=== PATIENT | male | born 1930 | race Caucasian/White ===

== ENCOUNTER → 2016-11-10 | Outpatient (CLI) | payer BC ==
[~2016-11-10] MED LIST: ASPI81TA85 PO; CALCTAB5 PO; CRAN1CAP15 PO; LISI-461 PO; METO-217 PO; OMEG10007 PO; SIMV10TA2 PO; Vitamin E PO; vitamin D PO
[2016-11-10 15:36] LABS: BASO % 0.7 %; BASO ABS # 0.05 K/uL (0-0.2); COMPLETE YES; EOS % 4.2 %; HEMATOCRIT 40.7 % (42-52); IG% 0.3 %; LYMPH % 21.8 %; LYMPH ABS # 1.66 K/uL (1.2-3.4); MEAN CELL VOLUME 98.1 fL (80-100); MEAN CORPUSCULAR HGB CONC 33.7 g/dl (32-36); MEAN PLATELET VOLUME 10.1 fL (7.4-10.4); MONO % 10.2 %; NEUT % 62.8 %; PLATELET COUNT 235 K/uL (130-400); RED BLOOD COUNT 4.15 M/uL (4.7-6.1); WHITE BLOOD COUNT 7.61 K/uL (4.8-10.8)
[2016-11-10 16:07] LABS: ALT/SGPT 24 U/L (12-78); AST/SGOT 10 U/L (15-37); BLOOD UREA NITROGEN 14 mg/dl (7-18); BUN/CREATININE RATIO 12.4 (10-20); CALCIUM 9.1 mg/dl (8.5-10.1); CARBON DIOXIDE 27 mmol/L (21-32); CHLORIDE 106 mmol/L (98-107); GLUCOSE 116 mg/dl (70-99); POTASSIUM 3.8 mmol/L (3.5-5.1); SODIUM 141 mmol/L (136-145)
[2016-11-10 16:19] LABS: ALB/GLOB RATIO 1.3 (0.9-2); ALKALINE PHOSPHATASE 83 U/L (45-117); CHOLESTEROL 143 mg/dl (0-200); CHOLESTEROL/HDL RATIO 2.8; HDL CHOLESTEROL 51 mg/dl; LDL CHOLESTEROL CALCULATED 50 mg/dl; TRIGLYCERIDES 210 mg/dl (0-150); VERY LOW DENSITY LIPOPROT CALC 42 mg/dl
== END | disposition home or self-care (01) ==
LOC: C.LAB1850 14:28
PROVIDERS: ATTEND Internal Medicine Pulmonary Disease
DX: I25.10 Atherosclerotic heart disease of native coronary artery without angina pectoris (principal); E78.5 Hyperlipidemia, unspecified; I10 Essential (primary) hypertension; N31.9 Neuromuscular dysfunction of bladder, unspecified

== ENCOUNTER 2017-08-17 03:33 | Inpatient (IN) | payer OTHER, BC ==
[~2017-08-17] VITALS: Ht 172.7 cm; Wt 73.2 kg
[2017-08-17] VITALS (8 sets, daily range): BP systolic 108–147; BP diastolic 68–83; PULSE 91–114; TEMP 36.8–36.9; O2SAT 93–97; Ht 172.7 cm; Wt 73.2 kg
[2017-08-17] MEDS ORDERED: SODIUM CHLORIDE 0.9% 500ML 500 ML IV STA (03:56)
--- NOTE | 2017-08-17 04:04 | EMERGENCY ROOM VISIT NOTE ---
History Report prepared by Breonna: Ye Ramirez Under the Supervision of: Dr. Akin Knox M.D. 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 The patient also notes a cough and congestion. Per EMS, the patient had a fever of 101.9 at group home. The patient had low oxygen saturation upon arrival and was placed on 1 L NC by nursing staff. He notes that he was given Tylenol yesterday. He denies any history of COPD. He denies using at home oxygen. He denies any abdominal pain, syncope, vomiting, or leg swelling. He denies taking any antibiotics. The patient currently resides at [facility]. 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 He denies any syncope or leg swelling. Review of Systems See HPI for pertinent positives & negatives. A total of 10 systems reviewed and were otherwise negative. Past Medical & Surgical Medical Problems: (1) Acute respiratory failure with hypoxia (2) HCAP (healthcare-associated pneumonia) (3) TN (myocardial infarction) (4) Self-catheterizes urinary bladder (5) Spinal injury (6) UTI (urinary tract infection) Family History Diabetes mellitus Social History Smoking Status: Former Smoker Alcohol Use: none Drug Use: none Marital Status: single Housing Status: lives alone Occupation Status: retired Current/Historical Medications Scheduled Aspirin (Aspirin Dr), 81 MG PO HS Calcium Carbonate-Vitamin D W/ (Caltrate 600 Plus), 1 TAB PO DAILY Lisinopril (Zestril), 10 MG PO DAILY Metoprolol Succinate (Toprol Xl), 50 MG PO HS Simvastatin (Zocor), 10 MG PO DAILY Scheduled PRN Docusate Sodium (Docusate Sodium), 100 MG PO DAILY PRN for Constipation Guaifenesin Ext Rel (Mucinex Ext Rel), 600 MG PO Q12 PRN for CONGESTION Allergies Coded Allergies: No Known Allergies (Unverified , 02/19/14) Physical Exam Vital Signs Date Time Temp Pulse Resp B/P (MAP) Pulse Ox O2 Delivery O2 Flow Rate FiO2 08/17/17 05:40 96 20 121/70 93 Nasal Cannula 2.0 08/17/17 03:41 93 Nasal Cannula 2.0 08/17/17 03:37 36.9 95 26 121/70 91 Room Air Physical Exam GENERAL: Patient is elderly appearing and in no acute distress. HEENT: No acute trauma, normocephalic atraumatic, mucous membranes dry, nasal congestion, no scleral icterus. NECK: No stridor, no adenopathy, no meningismus, trachea is midline. LUNGS: Decreased breath sounds and crackles throughout right lower lobe. HEART: Mildly tachycardic. No murmurs, rubs, gallops appreciated. ABDOMEN: Soft, nontender, bowel sounds positive, no masses appreciated, no peritonitis. BACK: No midline tenderness, no CVA tenderness EXTREMITIES: Normal motion all extremities, no cyanosis, no edema. NEUROLOGIC: Alert and oriented, no acute motor or sensory deficits, no focal weakness, cranial nerves grossly intact. SKIN: No rash, no jaundice, no diaphoresis. Poor skin turgor. Medical Decision & Procedures ER Provider Diagnostic Interpretation: Radiology results and stated below per my review interpretation: ONE VIEW CHEST: Infiltrate throughout right lung field with mild congestive findings as well. Poor inspiratory effort. Laboratory Results 08/17/17 04:10 Red Blood Count 3.75, Mean Corpuscular Volume 99.5, Mean Corpuscular Hemoglobin 32.5, Mean Corpuscular Hemoglobin Concent 32.7, Mean Platelet Volume 9.8, Neutrophils (%) (Auto) 81.5, Lymphocytes (%) (Auto) 5.8, Monocytes (%) (Auto) 9.9, Eosinophils (%) (Auto) 1.8, Basophils (%) (Auto) 0.6, Neutrophils # (Auto) 5.78, Lymphocytes # (Auto) 0.41, Monocytes # (Auto) 0.70, Eosinophils # (Auto) 0.13, Basophils # (Auto) 0.04 08/17/17 04:10 Test 08/17/17 04:00 08/17/17 04:10 Influenza Type A Antigen Neg for Influ A (NEG) Influenza Type B Antigen Neg for Influ B (NEG) White Blood Count 7.09 K/uL (4.8-10.8) Red Blood Count 3.75 M/uL (4.7-6.1) Hemoglobin 12.2 g/dL (14.0-18.0) Hematocrit 37.3 % (42-52) Mean Corpuscular Volume 99.5 fL (80-100) Mean Corpuscular Hemoglobin 32.5 pg (25-34) Mean Corpuscular Hemoglobin Concent 32.7 g/dl (32-36) Platelet Count 206 K/uL (130-400) Mean Platelet Volume 9.8 fL (7.4-10.4) Neutrophils (%) (Auto) 81.5 % Lymphocytes (%) (Auto) 5.8 % Monocytes (%) (Auto) 9.9 % Eosinophils (%) (Auto) 1.8 % Basophils (%) (Auto) 0.6 % Neutrophils # (Auto) 5.78 K/uL (1.4-6.5) Lymphocytes # (Auto) 0.41 K/uL (1.2-3.4) Monocytes # (Auto) 0.70 K/uL (0.11-0.59) Eosinophils # (Auto) 0.13 K/uL (0-0.5) Basophils # (Auto) 0.04 K/uL (0-0.2) RDW Standard Deviation 48.9 fL (36.4-46.3) RDW Coefficient of Variation 13.6 % (11.5-14.5) Immature Granulocyte % (Auto) 0.4 % Immature Granulocyte # (Auto) 0.03 K/uL (0.00-0.02) Anion Gap 6.0 mmol/L (3-11) Est Creatinine Clear Calc Drug Dose 47.5 ml/min Estimated GFR () 74.0 Estimated GFR (Non- 63.8 BUN/Creatinine Ratio 14.7 (10-20) Calcium Level 8.2 mg/dl (8.5-10.1) Total Bilirubin 0.5 mg/dl (0.2-1) Direct Bilirubin 0.2 mg/dl (0-0.2) Aspartate Amino Transf (AST/SGOT) 14 U/L (15-37) Alanine Aminotransferase (ALT/SGPT) 22 U/L (12-78) Alkaline Phosphatase 62 U/L (45-117) Troponin I < 0.015 ng/ml (0-0.045) Total Protein 6.5 gm/dl (6.4-8.2) Albumin 3.5 gm/dl (3.4-5.0) Laboratory results as reviewed by me. Medications Administered Medications (Trade) Dose Ordered Sig/Radha Route Start Time Stop Time Status Last Admin Dose Admin Sodium Chloride 500 ml @ 999 mls/hr Q31M STAT IV 08/17/17 03:56 08/17/17 04:26 DC 08/17/17 03:56 999 MLS/HR Levofloxacin (Levaquin / D5W) 750 mg NOW STAT IV 08/17/17 04:46 08/17/17 04:47 DC 08/17/17 05:01 750 MG ECG Indication: other (fever) Rate (beats per minute): 80 Rhythm: sinus rhythm Findings: no acute ischemic change, no ectopy, other (Poor baseline) ED Course 0350: The patient was evaluated in room B9. A complete history and physical exam was performed. 0505: I spoke with abelardo Triana. We discussed the patients case. The patient will be evaluated by the [facility] for further management. 0510: I reassessed the patient at this time. He is feeling much better. He notes that he is breathing well on the oxygen, which he still requires. I discussed the results and treatment plan with the patient. I answered all pertaining questions that he had. He expressed understanding and verbalized agreement. The patient will be further evaluated. Medical Decision Differential: Viral, Pharyngitis, Cellulitis, Pneumonia, Influenza, Meningitis, Sepsis, Bacteremia, UTI/Pyelonephritis, Endocrine, Toxicologic, amongst other pathologies entertained. 86 yr old male arrives with complaint of cough, fevers, and generalized weakness. Exam consistent with significant dehydration and right lobe pna. Requiring NC O2 for saturation. CXR with congestive failure vs infiltrate, but given exam consistent with dehydration may not be over CHF. Flu negative. He is A&O. No evidence cellulitis seen. He is not overtly septic though I did obtain blood cultures with report temp 101.9 at [facility]. Medication Reconcilliation Current Medication List: was personally reviewed by me Blood Pressure Screening Patient's blood pressure: Normal blood pressure Consults Time Called: [phone] Consulting Physician: abelardo Triana Returned Call: [phone] Pasquariello, hospitalist. We discussed the patients case. The patient will be evaluated by the [facility] for further management. Impression Primary Impression: PNA (pneumonia) Additional Impression: Hypoxia Scribe Attestation The scribe's documentation has been prepared under my direction and personally reviewed by me in its entirety. I confirm that the note above accurately reflects all work, treatment, procedures, and medical decision making performed by me. Departure Information Dispostion Being Evaluated By Hospitalist Referrals To Sharma M.D. (PCP) Patient Instructions My [facility] Problem Qualifiers
[2017-08-17 04:41] LABS: BASO % 0.6 %; BASO ABS # 0.04 K/uL (0-0.2); EOS % 1.8 %; EOS ABS # 0.13 K/uL (0-0.5); HEMATOCRIT 37.3 % (42-52); HEMOGLOBIN 12.2 g/dL (14.0-18.0); IG# 0.03 K/uL (0.00-0.02); LYMPH % 5.8 %; LYMPH ABS # 0.41 K/uL (1.2-3.4); MEAN CELL VOLUME 99.5 fL (80-100); MEAN CORPUSCULAR HEMOGLOBIN 32.5 pg (25-34); MEAN CORPUSCULAR HGB CONC 32.7 g/dl (32-36); MEAN PLATELET VOLUME 9.8 fL (7.4-10.4); MONO % 9.9 %; NEUT % 81.5 %; NEUT ABS # 5.78 K/uL (1.4-6.5); PLATELET COUNT 206 K/uL (130-400); RED CELL DISTRIBUTION WIDTH CV 13.6 % (11.5-14.5); RED CELL DISTRIBUTION WIDTH SD 48.9 fL (36.4-46.3); WHITE BLOOD COUNT 7.09 K/uL (4.8-10.8)
[2017-08-17] MEDS ORDERED: LEVAQUIN 750MG / 150ML D5W IV STA (04:46)
[2017-08-17 04:52] LABS: INFLUENZA B ANTIGEN Neg for Influ B (NEG)
[2017-08-17 04:59] LABS: ALBUMIN 3.5 gm/dl (3.4-5.0); ALT/SGPT 22 U/L (12-78); AST/SGOT 14 U/L (15-37); BLOOD UREA NITROGEN 15 mg/dl (7-18); CALCIUM 8.2 mg/dl (8.5-10.1); CARBON DIOXIDE 25 mmol/L (21-32); CREATININE 1.04 mg/dl (0.60-1.40); GLUCOSE 126 mg/dl (70-99); POTASSIUM 3.7 mmol/L (3.5-5.1); SODIUM 135 mmol/L (136-145)
[2017-08-17 05:04] LABS: ALKALINE PHOSPHATASE 62 U/L (45-117); TOTAL PROTEIN 6.5 gm/dl (6.4-8.2)
[2017-08-17] MEDS ORDERED: CALCTAB7 PO (05:20)
[2017-08-17] MEDS ORDERED: DOCU100C31 PO (05:22)
[2017-08-17] MEDS ORDERED: GUAI1TAB55 PO (05:23)
[2017-08-17] MEDS ORDERED: ONDANSETRON INJ 2 MG/ML 2 ML VIAL IV PRN (05:45)
[2017-08-17] MEDS ORDERED: ACETAMINOPHEN 325 MG TAB PO PRN (05:45)
[2017-08-17] MEDS ORDERED: GUAIFENESIN 600 MG TABCR PO PRN (05:45)
[2017-08-17] MEDS ORDERED: MAGNESIUM HYDROXIDE SUSP 30 ML UDC PO PRN (05:45)
--- NOTE | 2017-08-17 06:17 | History and Physical ---
History & Physical Date & Time of Service: Aug 17, 2017 at 06:03 Chief Complaint: COUGH Primary Care Physician: To Sharma M.D. History of Present Illness Source: patient, hospital records Patient is an 86 year old male from [facility] with a history of hypertension and hyperlipidemia that presents with shortness of breath and fevers. The patient began having shortness of breath over the weekend and developed and intermittent non-productive cough. The patient also started to develop low-grade fevers yesterday, and recorded at 101.9 at its highest. The patient denies any chest pain, sweats, chills, nausea, vomiting, diarrhea, or dysuria. In the ED the patient required 1.5L of oxygen to maintain adequate oxygen saturation and does not normally use oxygen at home, and chest xray revealed a right lower lobe pneumonia. Past Medical/Surgical History Medical Problems: (1) TN (myocardial infarction) Status: Resolved (2) Self-catheterizes urinary bladder Status: Chronic (3) Spinal injury Status: Chronic (4) UTI (urinary tract infection) Status: Resolved Family History Diabetes mellitus Social History Smoking Status: Former Smoker Smokeless Tobacco Use: No Alcohol Use: none Drug Use: none Marital Status: single Occupational Status: retired Immunizations History of Influenza Vaccine: Unknown History of Tetanus Vaccine?: Unknown History of Pneumococcal: Unknown History of Hepatitis B Vaccine: Unknown Multi-Drug Resistant Organisms History of MDRO: No Allergies Coded Allergies: No Known Allergies (Unverified , 02/19/14) Home Medications Scheduled Aspirin (Aspirin Dr), 81 MG PO HS Calcium Carbonate-Vitamin D W/ (Caltrate 600 Plus), 1 TAB PO DAILY Lisinopril (Zestril), 10 MG PO DAILY Metoprolol Succinate (Toprol Xl), 50 MG PO HS Simvastatin (Zocor), 10 MG PO DAILY Scheduled PRN Docusate Sodium (Docusate Sodium), 100 MG PO DAILY PRN for Constipation Guaifenesin Ext Rel (Mucinex Ext Rel), 600 MG PO Q12 PRN for CONGESTION Review of Systems Constitutional: + fever, No chills, No sweats, No weight loss, No fatigue ENT: + nasal symptoms, No sore throat Respiratory: + cough, + sputum, + wheezing, + shortness of breath Cardiovascular: No chest pain, No orthopnea, No palpitations Abdomen: No pain, No nausea, No vomiting, No diarrhea Neurologic: + weakness, No numbness/tingling, No balance problems Physical Exam Vital Signs Date Time Temp Pulse Resp B/P (MAP) Pulse Ox O2 Delivery O2 Flow Rate FiO2 08/17/17 05:40 96 20 121/70 93 Nasal Cannula 2.0 08/17/17 03:41 93 Nasal Cannula 2.0 08/17/17 03:37 36.9 95 26 121/70 91 Room Air General Appearance: WD/WN, no apparent distress Head: normocephalic, atraumatic Eyes: normal inspection, sclerae normal Neck: supple, no carotid bruits Respiratory/Chest: chest non-tender, no respiratory distress, no accessory muscle use, + wheezing, + pertinent finding (coarse breath sounds bilaterally) Cardiovascular: regular rate, rhythm, no edema, no gallop, no murmur Abdomen/GI: normal bowel sounds, non tender, soft Back: normal inspection, no muscle spasm Extremities/Musculoskelatal: normal inspection, no calf tenderness, no pedal edema 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, no motor/sensory deficits, alert Diagnostics Laboratory Results Results Past 24 Hours Test 08/17/17 04:00 08/17/17 04:10 Range/Units Influenza Type A Antigen Neg for Influ A NEG Influenza Type B Antigen Neg for Influ B NEG White Blood Count 7.09 4.8-10.8 K/uL Red Blood Count 3.75 4.7-6.1 M/uL Hemoglobin 12.2 14.0-18.0 g/dL Hematocrit 37.3 42-52 % Mean Corpuscular Volume 99.5 80-100 fL Mean Corpuscular Hemoglobin 32.5 25-34 pg Mean Corpuscular Hemoglobin Concent 32.7 32-36 g/dl Platelet Count 206 130-400 K/uL Mean Platelet Volume 9.8 7.4-10.4 fL Neutrophils (%) (Auto) 81.5 % Lymphocytes (%) (Auto) 5.8 % Monocytes (%) (Auto) 9.9 % Eosinophils (%) (Auto) 1.8 % Basophils (%) (Auto) 0.6 % Neutrophils # (Auto) 5.78 1.4-6.5 K/uL Lymphocytes # (Auto) 0.41 1.2-3.4 K/uL Monocytes # (Auto) 0.70 0.11-0.59 K/uL Eosinophils # (Auto) 0.13 0-0.5 K/uL Basophils # (Auto) 0.04 0-0.2 K/uL RDW Standard Deviation 48.9 36.4-46.3 fL RDW Coefficient of Variation 13.6 11.5-14.5 % Immature Granulocyte % (Auto) 0.4 % Immature Granulocyte # (Auto) 0.03 0.00-0.02 K/uL Sodium Level 135 136-145 mmol/L Potassium Level 3.7 3.5-5.1 mmol/L Chloride Level 104 98-107 mmol/L Carbon Dioxide Level 25 21-32 mmol/L Anion Gap 6.0 3-11 mmol/L Blood Urea Nitrogen 15 7-18 mg/dl Creatinine 1.04 0.60-1.40 mg/dl Est Creatinine Clear Calc Drug Dose 47.5 ml/min Estimated GFR () 74.0 Estimated GFR (Non- 63.8 BUN/Creatinine Ratio 14.7 10-20 Random Glucose 126 70-99 mg/dl Calcium Level 8.2 8.5-10.1 mg/dl Total Bilirubin 0.5 0.2-1 mg/dl Direct Bilirubin 0.2 0-0.2 mg/dl Aspartate Amino Transf (AST/SGOT) 14 15-37 U/L Alanine Aminotransferase (ALT/SGPT) 22 12-78 U/L Alkaline Phosphatase 62 45-117 U/L Troponin I < 0.015 0-0.045 ng/ml Total Protein 6.5 6.4-8.2 gm/dl Albumin 3.5 3.4-5.0 gm/dl Microbiology Results 08/17/17 Blood Culture, Received Pending 08/17/17 Blood Culture, Received Pending Impression Assessment and Plan Patient is an 86 year old male from [facility] with a history of hypertension and hyperlipidemia that presents with shortness of breath and fevers 1) HCAP - Admit to Med/Surg - Vancomycin, Zosyn, and Levaquin - Duonebs - Flutter valve - Supplemental oxygen as needed to maintain SpO2 > 92% - Influenza Negative - CXR: Right lower lobe pneumonia 2) Hypertension - Continue home Lisinopril and Metoprolol 3) Hyperlipidemia - Continue home Simvastatin 4) DVT - SCDs 5) Code Status - Full Resuscitation 6) Disposition - Discharge back to [facility] based on therapy recommendations - PT/OT - Discharge Planning Evaluation Attending addendum: I have physically seen this patient, have supervised the medical residents activities, and agree with the H&P unless as otherwise noted. Assessment and Plan: Pneumonia-- Admit to medical surgical floor Vancomycin IV per pharmacokinetic monitoring Zosyn 3.375 mg IV every 8 hours Levofloxacin 500 mg IV every 24 hours Solu-Medrol 40 mg IV every 8 hours Guaifenesin extended release 600 mg by mouth twice a day Nasal cannula oxygen titrate to keep pulse ox greater than or equal to 92% Hypertension-- Continue lisinopril and metoprolol Hyperlipidemia-- Statin Level of Care Med/Surg Advanced Directives Existing Advance Directive: No Existing Living Will: No Existing Power of Sole Molder: No Resuscitation Status FULL RESUSCITATION VTE Prophylaxis VTE Risk Assessment Done? Y/N: Yes Risk Level: Moderate Given or contraindicated: SCD's Resident Tracking Resident Involvement: Resident Care Provided Care Provided: Adult Hospital Medicine
[2017-08-17] MEDS ORDERED: VANCOMYCIN CONSULT ACTIVE PRN (07:00)
[2017-08-17] MEDS ORDERED: PIPERACILL/TAZOBAC CONSULT ACTIVE PRN (07:00)
[2017-08-17] MEDS ORDERED: LIDOCAINE HCL 2% JELLY 30 ML TUBE EXT ONE (07:05)
[2017-08-17] MEDS ORDERED: PIPERACILL/TAZOBAC IV 3.375 GM in DEXTROSE 5% 100ML IV ONE (07:15)
--- NOTE | 2017-08-17 07:15 | DIAGNOSTIC IMAGING REPORT ---
CHEST ONE VIEW PORTABLE HISTORY: fever COMPARISON: Chest 11/28/2014. FINDINGS: The heart is mildly enlarged. There is chronic elevation the right hemidiaphragm. No pleural effusions. No pneumothorax. There is interstitial vascular thickening suggestive of mild congestive change. No focal lung consolidations to suggest pneumonia. Linear densities at the right lung base favor subsegmental atelectasis. IMPRESSION: Cardiomegaly with mild pulmonary vascular congestion. Electronically signed by: Ken Huang M.D. 08/17/2017 7:13 AM Dictated Date/Time: 08/17/2017 7:12 AM
[2017-08-17] MEDS ORDERED: VANCOMYCIN INJ 1,750 MG in SODIUM CHLORIDE 0.9% 500ML 500 ML IV ONE (07:30)
[2017-08-17] MEDS: ALBUT/IPRATROP 3MG/0.5MG NEB 3 ML VIAL INH SCH ×4 (07:53→19:09)
[2017-08-17] MEDS ORDERED: SODIUM CHLORIDE 0.9% 1000ML 1,000 ML IV SCH (08:00)
[2017-08-17] MEDS: CALCIUM 600MG + VIT D 400 IU TAB PO SCH (08:21)
[2017-08-17] MEDS: SIMVASTATIN 10 MG TAB PO SCH (08:21)
[2017-08-17] MEDS: LISINOPRIL 10 MG TAB PO SCH (08:22)
[2017-08-17] MEDS ORDERED: PIPERACILL/TAZOBAC IV 3.375 GM in DEXTROSE 5% 100ML 100 ML IV SCH (14:00)
[2017-08-17] MEDS: CEFTRIAXONE SOD INJ 1 GM in DEXTROSE 5% 50ML 50 ML IV SCH (15:46)
[2017-08-17] MEDS ORDERED: FUROSEMIDE 40 MG/4 ML VIAL ONE (16:29)
[2017-08-17] MEDS ORDERED: NURSING VERBAL MED ORDER ONE (16:30)
--- NOTE | 2017-08-17 16:43 | DIAGNOSTIC IMAGING REPORT ---
CHEST ONE VIEW PORTABLE CLINICAL HISTORY: SOB dyspnea COMPARISON STUDY: 08/17/2017 3:58 AM FINDINGS: Mild stable cardia megaly. Fixed lateral hernia. Prominent pulmonary vasculature. Chronic elevation right hemidiaphragm. IMPRESSION: Mild congestive failure. No major change from the prior exam. The above report was generated using voice recognition software. It may contain grammatical, syntax or spelling errors. Electronically signed by: Obdulio Tay M.D. 08/17/2017 4:42 PM Dictated Date/Time: 08/17/2017 4:41 PM
[2017-08-17] MEDS ORDERED: FUROSEMIDE INJ 20 MG in SYRINGE 0 ML IV ONE (17:00)
[2017-08-17] MEDS ORDERED: AZITHROMYCIN 500 MG / D5W 250 ML IV ONE ×2 (17:00)
[2017-08-17] MEDS: ASPIRIN 81 MG ECTAB PO SCH (20:14)
[2017-08-17] MEDS: METOPROLOL SUCC 50MG EXT REL TAB PO SCH (20:15)
--- NOTE | 2017-08-17 20:53 | Family Medicine Progress Note ---
Progress Note Date of Service Aug 17, 2017. Subjective Pt evaluation today including: conversation w/ patient, physical exam, chart review, lab review, review of inpatient medication list Pain: Denies pain PO Intake: Recommended by [facility] patient not have oral intake at this time Voiding: parham catheter in place Patient reports he is feeling much better than he was last night but still reporting difficulty breathing. Constitutional: + fever, + chills, + sweats, + fatigue ENT: + hearing loss, + trouble swallowing Respiratory: + cough, + sputum, + wheezing, + shortness of breath, + dyspnea on exertion, + dyspnea at rest Cardiovascular: No chest pain, No orthopnea, No PND, No edema, No claudication, No palpitations, No problem reported Abdomen: No pain, No nausea, No vomiting, No diarrhea, No constipation, No GI bleeding, No problem reported Male : + problem reported (reports "bad bladder nerves" ) Neurologic: + weakness, + balance problems Psychiatric: + anxiety (about falls) All Other Systems: Reviewed and Negative Medications Current Inpatient Medications Medications (Trade) Dose Ordered Sig/Radha Route Start Time Stop Time Status Last Admin Dose Admin Acetaminophen (Tylenol Tab) 650 mg Q4H PRN PO 08/17/17 05:45 09/16/17 05:44 Magnesium Hydroxide (Milk Of Magnesia Susp) 30 ml Q6H PRN PO 08/17/17 05:45 09/16/17 05:44 Polyethylene (Miralax Powder Packet) 17 gm DAILY PRN PO 08/17/17 05:45 09/16/17 05:44 Ondansetron HCl (Zofran Inj) 4 mg Q6H PRN IV 08/17/17 05:45 09/16/17 05:44 Aspirin (Ecotrin Tab) 81 mg HS PO 08/17/17 21:00 09/16/17 20:59 08/17/17 20:14 81 MG Calcium/Vitamin D (Caltrate Plus Tab) 1 tab DAILY PO 08/17/17 08:00 09/16/17 08:59 08/17/17 08:21 1 TAB Guaifenesin (Mucinex Contr Rel Tab) 600 mg Q12 PRN PO 08/17/17 05:45 09/16/17 05:44 08/17/17 15:46 600 MG Lisinopril (Zestril Tab) 10 mg DAILY PO 08/17/17 08:00 09/16/17 08:59 08/17/17 08:22 10 MG Metoprolol Succinate (Toprol Xl Tab) 50 mg HS PO 08/17/17 21:00 09/16/17 20:59 08/17/17 20:15 50 MG Simvastatin (Zocor Tab) 10 mg DAILY PO 08/17/17 08:00 09/16/17 08:59 08/17/17 08:21 10 MG Albuterol/ Ipratropium (Duoneb) 3 ml QIDR INH 08/17/17 08:00 09/16/17 07:59 08/17/17 19:09 3 ML Ceftriaxone Sodium 1 gm/ Dextrose 50 ml @ 120 mls/hr Q24H IV 08/17/17 16:00 08/24/17 14:29 08/17/17 15:46 120 MLS/HR Azithromycin 250 mg/Dextrose 252.5 ml @ 126.25 mls/ hr Q24H IV 08/18/17 17:00 08/21/17 18:59 Objective Vital Signs Date Time Temp Pulse Resp B/P (MAP) Pulse Ox O2 Delivery O2 Flow Rate FiO2 08/17/17 20:12 36.9 109 36 112/69 (83) 93 Nasal Cannula 1.0 08/17/17 19:09 98 20 93 Room Air 08/17/17 16:00 Room Air 08/17/17 15:54 110 37 94 Room Air 08/17/17 15:31 36.8 114 36 147/83 (104) 95 1.0 08/17/17 11:30 114 16 97 Nasal Cannula 2.0 08/17/17 07:53 92 16 97 Nasal Cannula 3.0 08/17/17 07:30 36.8 100 20 125/79 96 Nasal Cannula 3.0 08/17/17 05:40 96 20 121/70 93 Nasal Cannula 2.0 08/17/17 03:41 93 Nasal Cannula 2.0 08/17/17 03:37 36.9 95 26 121/70 91 Room Air Physical Exam General Appearance: WD/WN, + mild distress Eyes: normal inspection, PERRL, EOMI, sclerae normal ENT: + pharyngeal erythema, + pertinent finding (hard of hearing) Neck: supple, no adenopathy, no carotid bruits, trachea midline Respiratory/Chest: chest non-tender, + decreased breath sounds (RLL), + accessory muscle use, + crackles (left side, diffusely), + wheezing Cardiovascular: regular rate, rhythm, no edema, no gallop, no JVD, no murmur Abdomen: normal bowel sounds, non tender, soft Extremities: non-tender, no pedal edema, no calf tenderness 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, no motor/sensory deficits, alert, normal mood/affect, + pertinent finding (oriented to self and hospital; patient extremely fearful of falling, won't turn on side for resp exam as he exclaims "i'm falling!" Reports dizziness on sitting uprigt to eat breakfast) Skin: normal color Laboratory Results Last Resulted 08/17/17 04:10 Red Blood Count 3.75, Mean Corpuscular Volume 99.5, Mean Corpuscular Hemoglobin 32.5, Mean Corpuscular Hemoglobin Concent 32.7, Mean Platelet Volume 9.8, Neutrophils (%) (Auto) 81.5, Lymphocytes (%) (Auto) 5.8, Monocytes (%) (Auto) 9.9, Eosinophils (%) (Auto) 1.8, Basophils (%) (Auto) 0.6, Neutrophils # (Auto) 5.78, Lymphocytes # (Auto) 0.41, Monocytes # (Auto) 0.70, Eosinophils # (Auto) 0.13, Basophils # (Auto) 0.04 Last Resulted 08/17/17 04:10 Past 24 Hours Test 08/17/17 04:10 Range/Units Troponin I < 0.015 0-0.045 ng/ml Assessment and Plan Patient is an 86 year old male from [facility] with a history of hypertension and hyperlipidemia that presents with shortness of breath and fevers up to 101.9 Pneumonia--presumed HCAP - Vancomycin, Zosyn, and Levaquin given in ED; Switched to IV rocephin and azithromycin today, day 1 - Duonebs, Flutter valve, Supplemental oxygen as needed to maintain SpO2 > 92%-- currently on 1L at 93% - CBC: WBC 7, Hgb 12; CMP nl - Influenza Negative, MRSA neg - CXR: Right lower lobe densities but no focal consolidations - PT/OT Hypertension - Continue home Lisinopril 10 and Metoprolol 50 Hyperlipidemia - Continue home Simvastatin 10 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 -Known blood on UA DVTP: SCDs Code: full Dispo: med/surg, Discharge back to [facility] based on therapy recommendations Resident Tracking Resident Involvement: Resident Care Provided Care Provided: Adult Hospital Medicine Reviewed: Pt Seen/Exam by Me History breathing ok Constitutional: denies: fever Cardiovascular: denies chest pain General Appearance: no apparent distress (laying in bed comfortably) Respiratory: no respiratory distress, decreased breath sounds Cardiovascular: regular rate, rhythm Neurologic/Psychiatric: alert (on arousing) Skin Characteristics: warm/dry Assessment/Plan Resident Physician Supervision Note: I independently interviewed and examined the patient and verified the muro history and physical, reviewed labs and image studies, discussed the case with the resident Dr. Ramirez and agree with the findings and care plan.
[2017-08-18] VITALS (9 sets, daily range): BP systolic 101–119; BP diastolic 64–76; PULSE 75–94; TEMP 36.8; O2SAT 92–98
[2017-08-18] MEDS ORDERED: VANCOMYCIN INJ 1,000 MG in SODIUM CHLORIDE 0.9% 250ML 250 ML IV SCH (02:00)
[2017-08-18] MEDS ORDERED: LEVOFLOXACIN / D5W 750 MG in PREMIXED IN D5W 150 ML IV SCH (05:00)
[2017-08-18 06:26] LABS: BASO % 0.1 %; BASO ABS # 0.01 K/uL (0-0.2); HEMATOCRIT 36.4 % (42-52); HEMOGLOBIN 12.2 g/dL (14.0-18.0); IG# 0.02 K/uL (0.00-0.02); LYMPH % 8.9 %; LYMPH ABS # 1.04 K/uL (1.2-3.4); MEAN CELL VOLUME 97.8 fL (80-100); MEAN CORPUSCULAR HEMOGLOBIN 32.8 pg (25-34); MEAN CORPUSCULAR HGB CONC 33.5 g/dl (32-36); MEAN PLATELET VOLUME 9.4 fL (7.4-10.4); MONO % 8.3 %; MONO ABS # 0.97 K/uL (0.11-0.59); NEUT % 82.5 %; NEUT ABS # 9.61 K/uL (1.4-6.5); PLATELET COUNT 185 K/uL (130-400); RED CELL DISTRIBUTION WIDTH CV 13.9 % (11.5-14.5); RED CELL DISTRIBUTION WIDTH SD 49.7 fL (36.4-46.3); WHITE BLOOD COUNT 11.65 K/uL (4.8-10.8)
[2017-08-18 07:03] LABS: CALCIUM 8.8 mg/dl (8.5-10.1); CREATININE 1.46 mg/dl (0.60-1.40); POTASSIUM 3.3 mmol/L (3.5-5.1)
[2017-08-18] MEDS: ALBUT/IPRATROP 3MG/0.5MG NEB 3 ML VIAL INH SCH ×4 (07:06→19:06)
[2017-08-18] MEDS: CALCIUM 600MG + VIT D 400 IU TAB PO SCH (08:26)
[2017-08-18] MEDS: SIMVASTATIN 10 MG TAB PO SCH (08:26)
[2017-08-18] MEDS: LISINOPRIL 10 MG TAB PO SCH (08:26)
--- NOTE | 2017-08-18 09:28 | Clinical Documentation Query ---
Dr. [facility] : CLINICAL DOCUMENTATION QUERIES QUERY 1 OF 2 Patient is an 86 year old male admitted for presumed HCAP. Admission BUN and creatinine were 15 mg/dl and 1.04 mg/dl. This a.m. (08/18), repeat values were 25 mg/dl and 1.46 mg/dl. Risk factors include age, infection, IV Lasix last p.m. He is being monitored with serial chemistries. In your clinical opinion is this patient being managed for: (x ) Acute kidney failure ( ) Not Agree ( ) Other explanation of clinical findings (Please Explain) ( ) Unable to determine (Please Define) ( ) Need to Discuss The medical record reflects the following clinical findings, treatment, and risk factors. Clinical Indicators: As above Treatment:He is being monitored with serial chemistries. Risk Factors: Age, infection, IV Lasix last p.m. QUERY 2 OF 2 CXR was obtained 08/17 at 16:23, read to include mild congestive failure. Patient was treated with IV Lasix at this time. No documentation exists by nursing or physician regarding the events transpired at this time. Please clarify as clinically appropriate. Thank you. In your clinical opinion is this patient being managed for: ( ) Acute systolic congestive heart failure ( ) Acute diastolic congestive heart failure ( x) Not Agree ( ) Other explanation of clinical findings (Please Explain) ( ) Unable to determine (Please Define) ( ) Need to Discuss The medical record reflects the following clinical findings, treatment, and risk factors. Clinical Indicators: As above Treatment: Chest radiograph, IV Lasix Risk Factors: IVF administration, age Please clarify and document your clinical opinion in the progress notes and discharge summary. Terms such as "probable", "suspected", "likely", "questionable", "possible", or "still to be ruled out" are acceptable. IF IN AGREEMENT, YOU MUST DOCUMENT ABOVE DIAGNOSTIC STATEMENT IN DAILY PROGRESS NOTES AND DISCHARGE SUMMARY. This document is not part of the patient's record. Thank You, Harjeet Yoo, RN [phone]
[2017-08-18] MEDS: CEFTRIAXONE SOD INJ 1 GM in DEXTROSE 5% 50ML 50 ML IV SCH (15:53)
[2017-08-18] MEDS: AZITHROMYCIN 250 MG / D5W 250 ML IV SCH ×2 (16:37)
--- NOTE | 2017-08-18 19:37 | Family Medicine Progress Note ---
Progress Note Date of Service Aug 18, 2017. Subjective Pt evaluation today including: conversation w/ patient, physical exam, chart review, lab review Pain: denies pain PO Intake: mecanical soft as tolerated Voiding: parham catheter in place Patient feels much better today. Remains slightly disoriented, but is able to sit up on his own and is trying to mobilize. Constitutional: No fever, No chills, No sweats, No weight loss, No weakness , No fatigue, No problem reported Respiratory: + cough, + sputum, + wheezing, + shortness of breath, + dyspnea on exertion, No hemoptysis, No problem reported Cardiovascular: + orthopnea, No chest pain, No PND, No edema, No claudication, No palpitations, No problem reported Male : + problem reported (neurogenic bladder), No dysuria, No urinary frequency, No incontinence, No nocturia more than once/night, No slowing stream , No hematuria, No sexual dysfunction Neurologic: + memory loss, + weakness, + balance problems All Other Systems: Reviewed and Negative Medications Current Inpatient Medications Medications (Trade) Dose Ordered Sig/Radha Route Start Time Stop Time Status Last Admin Dose Admin Acetaminophen (Tylenol Tab) 650 mg Q4H PRN PO 08/17/17 05:45 09/16/17 05:44 Magnesium Hydroxide (Milk Of Magnesia Susp) 30 ml Q6H PRN PO 08/17/17 05:45 09/16/17 05:44 Polyethylene (Miralax Powder Packet) 17 gm DAILY PRN PO 08/17/17 05:45 09/16/17 05:44 Ondansetron HCl (Zofran Inj) 4 mg Q6H PRN IV 08/17/17 05:45 09/16/17 05:44 Aspirin (Ecotrin Tab) 81 mg HS PO 08/17/17 21:00 09/16/17 20:59 08/17/17 20:14 81 MG Calcium/Vitamin D (Caltrate Plus Tab) 1 tab DAILY PO 08/17/17 08:00 09/16/17 08:59 08/18/17 08:26 1 TAB Guaifenesin (Mucinex Contr Rel Tab) 600 mg Q12 PRN PO 08/17/17 05:45 09/16/17 05:44 08/17/17 15:46 600 MG Lisinopril (Zestril Tab) 10 mg DAILY PO 08/17/17 08:00 09/16/17 08:59 08/18/17 08:26 10 MG Metoprolol Succinate (Toprol Xl Tab) 50 mg HS PO 08/17/17 21:00 09/16/17 20:59 08/17/17 20:15 50 MG Simvastatin (Zocor Tab) 10 mg DAILY PO 08/17/17 08:00 09/16/17 08:59 08/18/17 08:26 10 MG Albuterol/ Ipratropium (Duoneb) 3 ml QIDR INH 08/17/17 08:00 09/16/17 07:59 08/18/17 19:06 3 ML Ceftriaxone Sodium 1 gm/ Dextrose 50 ml @ 120 mls/hr Q24H IV 08/17/17 16:00 08/24/17 14:29 08/18/17 15:53 120 MLS/HR Azithromycin 250 mg/Dextrose 252.5 ml @ 126.25 mls/ hr Q24H IV 08/18/17 17:00 08/21/17 18:59 08/18/17 16:37 126.25 MLS/HR Objective Vital Signs Date Time Temp Pulse Resp B/P (MAP) Pulse Ox O2 Delivery O2 Flow Rate FiO2 08/18/17 19:06 94 18 93 Room Air 08/18/17 16:22 36.8 94 20 106/67 (80) 92 Room Air 08/18/17 16:00 93 Room Air 08/18/17 15:06 94 18 93 Room Air 08/18/17 11:08 90 18 94 Room Air 08/18/17 08:30 98 Room Air 08/18/17 07:47 36.8 75 20 101/64 (76) 98 Room Air 08/18/17 07:06 81 16 95 Room Air 08/18/17 00:00 Room Air 08/17/17 23:38 36.8 91 28 108/68 (81) 93 Room Air 08/17/17 20:12 36.9 109 36 112/69 (83) 93 Nasal Cannula 1.0 Physical Exam General Appearance: WD/WN, no apparent distress Eyes: normal inspection, PERRL, EOMI, sclerae normal ENT: pharynx normal, + pertinent finding (hard of hearing) Neck: supple, no JVD, no carotid bruits, trachea midline Respiratory/Chest: chest non-tender, no respiratory distress, no accessory muscle use, + rhonchi (diffuse) Cardiovascular: regular rate, rhythm, no edema, no gallop, no JVD, no murmur Abdomen: normal bowel sounds, non tender, soft Extremities: normal range of motion, non-tender, normal inspection, no pedal edema Neurologic/Psychiatric: leather finisher II-XII nml as tested, no motor/sensory deficits, alert, normal mood/affect Skin: normal color, warm/dry, no rash Laboratory Results Last Resulted 08/18/17 06:13 Red Blood Count 3.72, Mean Corpuscular Volume 97.8, Mean Corpuscular Hemoglobin 32.8, Mean Corpuscular Hemoglobin Concent 33.5, Mean Platelet Volume 9.4, Neutrophils (%) (Auto) 82.5, Lymphocytes (%) (Auto) 8.9, Monocytes (%) (Auto) 8.3, Eosinophils (%) (Auto) 0.0, Basophils (%) (Auto) 0.1, Neutrophils # (Auto) 9.61, Lymphocytes # (Auto) 1.04, Monocytes # (Auto) 0.97, Eosinophils # (Auto) 0.00, Basophils # (Auto) 0.01 Last Resulted 08/18/17 06:13 Assessment and Plan Patient is an 86 year old male from [facility] with a history of hypertension and hyperlipidemia that presents with shortness of breath and fevers up to 101.9 Shortness of breath with fever secondary to ?Pneumonia--presumed HCAP - Vancomycin, Zosyn, and Levaquin given in ED; - Switched to IV rocephin and azithromycin, day 2 - Duonebs, Flutter valve, Supplemental oxygen as needed to maintain SpO2 > 92%-- currently on RA at 93% - CBC: WBC 11, Hgb 12; - Influenza Negative, MRSA neg - CXR: Right lower lobe densities but no focal consolidations. Repeat CXR with no infiltrate - Not conclusive of pneumonia. ? possible pneumonitis. - SIGNS AND DISPLAYS SALESPERSON eval noted. Refrain from oral feeds when short of breath. Diet changed to mechanical soft. Acute Kidney Injury - Cr jumped from 1.04 to 1.46 - BUN jumped form 15 to 25 - Continue to monitor - ?related to lasix Concern of fluid overload sec to IVF - SOB last evening - received >1L IVF over the day including IVF yesterday. Given 20mgs lasix - diuresed 800ml with creatinine rise -- doubt real fluid overload. Hypokalemia - CMP show K of 3.3; supplemented with 20meq powder packet due to swallowing difficulties Hypertension - Continue home Lisinopril 10 and Metoprolol 50 Hyperlipidemia - Continue home Simvastatin 10 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 -Known blood on UA DVTP: SCDs Code: full Dispo: med/surg, Discharge back to [facility] based on therapy recommendations Resident Tracking Resident Involvement: Resident Care Provided Care Provided: Adult Hospital Medicine Reviewed: Pt Seen/Exam by Me History sitting at the edge of bed. breathing better Constitutional: denies: fever Respiratory: positive: short of breath (breathing much better today) Cardiovascular: denies chest pain General Appearance: no apparent distress Respiratory: decreased breath sounds, rhonchi Cardiovascular: regular rate, rhythm Neurologic/Psychiatric: alert Skin Characteristics: warm/dry Assessment/Plan Resident Physician Supervision Note: I independently interviewed and examined the patient and verified the muro history and physical, reviewed labs and image studies, discussed the case with the resident Dr. Ramirez and agree with the findings and care plan.
[2017-08-18] MEDS ORDERED: POTASSIUM CHLORIDE PWD 20 MEQ PACK PO ONE (19:45)
[2017-08-18] MEDS: ASPIRIN 81 MG ECTAB PO SCH (20:18)
[2017-08-18] MEDS: METOPROLOL SUCC 50MG EXT REL TAB PO SCH (20:18)
[2017-08-19] VITALS (10 sets, daily range): BP systolic 95–159; BP diastolic 56–84; PULSE 80–100; TEMP 36.6–37; O2SAT 90–98
[2017-08-19] MEDS: ALBUT/IPRATROP 3MG/0.5MG NEB 3 ML VIAL INH SCH ×4 (07:10→19:13)
[2017-08-19 07:11] LABS: HEMATOCRIT 39.4 % (42-52); HEMOGLOBIN 13.1 g/dL (14.0-18.0); MEAN CELL VOLUME 99.7 fL (80-100); MEAN CORPUSCULAR HEMOGLOBIN 33.2 pg (25-34); MEAN CORPUSCULAR HGB CONC 33.2 g/dl (32-36); MEAN PLATELET VOLUME 9.5 fL (7.4-10.4); PLATELET COUNT 191 K/uL (130-400); RED CELL DISTRIBUTION WIDTH CV 14.1 % (11.5-14.5); RED CELL DISTRIBUTION WIDTH SD 51.6 fL (36.4-46.3); WHITE BLOOD COUNT 8.62 K/uL (4.8-10.8)
[2017-08-19 07:45] LABS: CALCIUM 8.7 mg/dl (8.5-10.1); CREATININE 1.08 mg/dl (0.60-1.40); POTASSIUM 3.9 mmol/L (3.5-5.1)
[2017-08-19] MEDS: LISINOPRIL 10 MG TAB PO SCH (08:37)
[2017-08-19] MEDS: CALCIUM 600MG + VIT D 400 IU TAB PO SCH (08:37)
[2017-08-19] MEDS: SIMVASTATIN 10 MG TAB PO SCH (08:37)
--- NOTE | 2017-08-19 12:35 | Family Medicine Progress Note ---
Progress Note Date of Service Aug 19, 2017. Subjective Pt evaluation today including: conversation w/ patient, physical exam, chart review, lab review, review of studies Voiding: no voiding problems Patient is sitting up in bed and in good spirits. Reports sleeping well. He denies feeling feverish and reports that his cough and breathing is better. He does endorse increased mucus and drainage. Constitutional: No fever, No chills Respiratory: + cough, + wheezing, No shortness of breath Cardiovascular: No chest pain, No palpitations Abdomen: No pain, No nausea, No vomiting, No diarrhea Male : No dysuria Medications Current Inpatient Medications Medications (Trade) Dose Ordered Sig/Radha Route Start Time Stop Time Status Last Admin Dose Admin Acetaminophen (Tylenol Tab) 650 mg Q4H PRN PO 08/17/17 05:45 09/16/17 05:44 Magnesium Hydroxide (Milk Of Magnesia Susp) 30 ml Q6H PRN PO 08/17/17 05:45 09/16/17 05:44 Polyethylene (Miralax Powder Packet) 17 gm DAILY PRN PO 08/17/17 05:45 09/16/17 05:44 Ondansetron HCl (Zofran Inj) 4 mg Q6H PRN IV 08/17/17 05:45 09/16/17 05:44 Aspirin (Ecotrin Tab) 81 mg HS PO 08/17/17 21:00 09/16/17 20:59 08/18/17 20:18 81 MG Calcium/Vitamin D (Caltrate Plus Tab) 1 tab DAILY PO 08/17/17 08:00 09/16/17 08:59 08/19/17 08:37 1 TAB Guaifenesin (Mucinex Contr Rel Tab) 600 mg Q12 PRN PO 08/17/17 05:45 09/16/17 05:44 08/17/17 15:46 600 MG Lisinopril (Zestril Tab) 10 mg DAILY PO 08/17/17 08:00 09/16/17 08:59 08/19/17 08:37 10 MG Metoprolol Succinate (Toprol Xl Tab) 50 mg HS PO 08/17/17 21:00 09/16/17 20:59 08/18/17 20:18 50 MG Simvastatin (Zocor Tab) 10 mg DAILY PO 08/17/17 08:00 09/16/17 08:59 08/19/17 08:37 10 MG Albuterol/ Ipratropium (Duoneb) 3 ml QIDR INH 08/17/17 08:00 09/16/17 07:59 08/19/17 11:24 3 ML Ceftriaxone Sodium 1 gm/ Dextrose 50 ml @ 120 mls/hr Q24H IV 08/17/17 16:00 08/24/17 14:29 08/18/17 15:53 120 MLS/HR Azithromycin 250 mg/Dextrose 252.5 ml @ 126.25 mls/ hr Q24H IV 08/18/17 17:00 08/21/17 18:59 08/18/17 16:37 126.25 MLS/HR Objective Vital Signs Date Time Temp Pulse Resp B/P (MAP) Pulse Ox O2 Delivery O2 Flow Rate FiO2 08/19/17 11:30 36.6 100 20 159/84 (109) 94 Room Air 08/19/17 11:24 88 18 92 Room Air 08/19/17 08:30 98 Room Air 08/19/17 07:40 37.0 80 20 113/74 (87) 98 Room Air 08/19/17 07:12 90 18 90 Room Air 08/19/17 00:05 36.7 94 20 102/68 (79) 92 Room Air 08/19/17 00:00 Room Air 08/18/17 20:16 80 119/76 (90) 08/18/17 19:06 94 18 93 Room Air 08/18/17 16:22 36.8 94 20 106/67 (80) 92 Room Air 08/18/17 16:00 93 Room Air 08/18/17 15:06 94 18 93 Room Air Physical Exam General Appearance: WD/WN, no apparent distress Neck: supple, no adenopathy Respiratory/Chest: no respiratory distress, no accessory muscle use, + rales, + rhonchi, + wheezing Cardiovascular: regular rate, rhythm, no edema Abdomen: normal bowel sounds, non tender, soft Neurologic/Psychiatric: alert, normal mood/affect, oriented x 3 Skin: normal color, warm/dry, no rash Laboratory Results 08/19/17 06:44 08/19/17 06:44 Test 08/19/17 06:44 Red Blood Count 3.95 M/uL (4.7-6.1) Mean Corpuscular Volume 99.7 fL (80-100) Mean Corpuscular Hemoglobin 33.2 pg (25-34) Mean Corpuscular Hemoglobin Concent 33.2 g/dl (32-36) RDW Standard Deviation 51.6 fL (36.4-46.3) RDW Coefficient of Variation 14.1 % (11.5-14.5) Mean Platelet Volume 9.5 fL (7.4-10.4) Anion Gap 7.0 mmol/L (3-11) Est Creatinine Clear Calc Drug Dose 45.7 ml/min Estimated GFR () 70.6 Estimated GFR (Non- 61.0 BUN/Creatinine Ratio 26.4 (10-20) Calcium Level 8.7 mg/dl (8.5-10.1) Assessment and Plan Patient is an 86 year old male from [facility] with a history of hypertension and hyperlipidemia that presents with shortness of breath and fevers up to 101.9 Shortness of breath with fever secondary to possible HCAP - Vancomycin, Zosyn, and Levaquin given in ED; - Switched to IV Rocephin and azithromycin, day 3 - Duonebs, Flutter valve, Supplemental oxygen as needed to maintain SpO2 > 92% - Influenza Negative, MRSA neg - CXR: Right lower lobe densities but no focal consolidations. Repeat CXR with no infiltrate. Possible pneumonitis. - COPYRIGHT MANAGER eval noted. Refrain from oral feeds when short of breath. Diet changed to mechanical soft. Acute Kidney Injury - resolved - Cr improved - BUN 29 today - Continue to monitor . Hypokalemia -Improving today -Giving another 20meq powder packet today due to swallowing difficulties Hypertension - Continue home Lisinopril 10 and Metoprolol 50 Hyperlipidemia - Continue home Simvastatin 10 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 -Known blood on UA DVTP: SCDs Code: full Dispo: med/surg, Discharge back to [facility] based on therapy recommendations Reviewed: Pt Seen/Exam by Me History breathing better. still with cough Constitutional: denies: fever Cardiovascular: denies chest pain Gastrointestinal/Abdominal: negative: abdominal pain General Appearance: mild distress Respiratory: no respiratory distress, decreased breath sounds, rhonchi Cardiovascular: regular rate, rhythm Neurologic/Psychiatric: alert, oriented x 3 Skin Characteristics: warm/dry Assessment/Plan Resident Physician Supervision Note: I independently interviewed and examined the patient and verified the muro history and physical, reviewed labs and image studies, discussed the case with the resident Dr. Chin and agree with the findings and care plan.
[2017-08-19] MEDS ORDERED: POTASSIUM CHLORIDE PWD 20 MEQ PACK PO ONE (12:45)
[2017-08-19] MEDS: CEFTRIAXONE SOD INJ 1 GM in DEXTROSE 5% 50ML 50 ML IV SCH (15:50)
[2017-08-19] MEDS: AZITHROMYCIN 250 MG / D5W 250 ML IV SCH ×2 (17:28)
[2017-08-19] MEDS: POLYETHYLENE (MIRALAX) 17 GM PACK PO PRN (17:33)
[2017-08-19] MEDS: METOPROLOL SUCC 50MG EXT REL TAB PO SCH (19:21)
[2017-08-19] MEDS: ASPIRIN 81 MG ECTAB PO SCH (19:22)
[2017-08-20] VITALS (11 sets, daily range): BP systolic 97–120; BP diastolic 55–79; PULSE 81–98; TEMP 36.6–37.3; O2SAT 91–98
[2017-08-20 05:14] LABS: BASO % 0.3 %; BASO ABS # 0.02 K/uL (0-0.2); EOS % 0.2 %; EOS ABS # 0.01 K/uL (0-0.5); HEMATOCRIT 39.4 % (42-52); HEMOGLOBIN 12.9 g/dL (14.0-18.0); IG# 0.01 K/uL (0.00-0.02); LYMPH % 17.3 %; LYMPH ABS # 1.05 K/uL (1.2-3.4); MEAN CELL VOLUME 99.2 fL (80-100); MEAN CORPUSCULAR HEMOGLOBIN 32.5 pg (25-34); MEAN CORPUSCULAR HGB CONC 32.7 g/dl (32-36); MEAN PLATELET VOLUME 9.6 fL (7.4-10.4); MONO ABS # 0.73 K/uL (0.11-0.59); NEUT ABS # 4.25 K/uL (1.4-6.5); PLATELET COUNT 203 K/uL (130-400); RED CELL DISTRIBUTION WIDTH SD 50.3 fL (36.4-46.3); WHITE BLOOD COUNT 6.07 K/uL (4.8-10.8)
[2017-08-20 05:51] LABS: CALCIUM 8.4 mg/dl (8.5-10.1); CREATININE 0.89 mg/dl (0.60-1.40); POTASSIUM 3.7 mmol/L (3.5-5.1)
[2017-08-20] MEDS: ALBUT/IPRATROP 3MG/0.5MG NEB 3 ML VIAL INH SCH ×4 (07:40→19:24)
[2017-08-20] MEDS: SIMVASTATIN 10 MG TAB PO SCH (08:16)
[2017-08-20] MEDS: LISINOPRIL 10 MG TAB PO SCH (08:16)
[2017-08-20] MEDS: CALCIUM 600MG + VIT D 400 IU TAB PO SCH (08:16)
[2017-08-20] MEDS ORDERED: POTASSIUM CHLORIDE PWD 20 MEQ PACK PO ONE (09:30)
--- NOTE | 2017-08-20 13:56 | Family Medicine Progress Note ---
Progress Note Date of Service Aug 20, 2017. Subjective Pt evaluation today including: conversation w/ patient, physical exam, chart review, lab review Pain: patient denies pain Pt says that he is feeling fatigued today. Patient denies SOB. Patient is alert and oriented x3. Nursing remarks that he can be uncooperative and confused at times, perhaps 2/2 . Otherwise, no complaints. Constitutional: No fever, No chills Respiratory: No cough, No wheezing Cardiovascular: No chest pain, No palpitations Abdomen: No pain, No nausea, No vomiting Endo: + fatigue Objective Vital Signs Date Time Temp Pulse Resp B/P (MAP) Pulse Ox O2 Delivery O2 Flow Rate FiO2 08/20/17 11:27 94 18 93 Room Air 08/20/17 08:30 93 Room Air 08/20/17 07:40 85 18 98 Room Air 08/20/17 07:31 37.3 81 16 120/79 (93) 91 Room Air 08/20/17 00:28 37.1 93 18 114/77 (89) 92 Room Air 08/20/17 00:00 Room Air 08/19/17 19:21 98/56 (70) 08/19/17 19:13 85 18 95 Room Air 08/19/17 16:00 Room Air 08/19/17 15:27 88 18 95 Room Air 08/19/17 15:12 36.8 87 20 95/62 (73) 93 Room Air Physical Exam General Appearance: WD/WN, no apparent distress Respiratory/Chest: chest non-tender, no respiratory distress, no accessory muscle use, + crackles, + rales, + rhonchi, + wheezing Cardiovascular: regular rate, rhythm, no murmur Abdomen: normal bowel sounds, non tender, soft Neurologic/Psychiatric: alert, normal mood/affect, oriented x 3 Skin: normal color, warm/dry, no rash Laboratory Results 08/20/17 04:50 Red Blood Count 3.97, Mean Corpuscular Volume 99.2, Mean Corpuscular Hemoglobin 32.5, Mean Corpuscular Hemoglobin Concent 32.7, Mean Platelet Volume 9.6, Neutrophils (%) (Auto) 70.0, Lymphocytes (%) (Auto) 17.3, Monocytes (%) (Auto) 12.0, Eosinophils (%) (Auto) 0.2, Basophils (%) (Auto) 0.3, Neutrophils # (Auto ) 4.25, Lymphocytes # (Auto) 1.05, Monocytes # (Auto) 0.73, Eosinophils # (Auto ) 0.01, Basophils # (Auto) 0.02 08/20/17 04:50 Test 08/20/17 04:50 White Blood Count 6.07 K/uL (4.8-10.8) Red Blood Count 3.97 M/uL (4.7-6.1) Hemoglobin 12.9 g/dL (14.0-18.0) Hematocrit 39.4 % (42-52) Mean Corpuscular Volume 99.2 fL (80-100) Mean Corpuscular Hemoglobin 32.5 pg (25-34) Mean Corpuscular Hemoglobin Concent 32.7 g/dl (32-36) Platelet Count 203 K/uL (130-400) Mean Platelet Volume 9.6 fL (7.4-10.4) Neutrophils (%) (Auto) 70.0 % Lymphocytes (%) (Auto) 17.3 % Monocytes (%) (Auto) 12.0 % Eosinophils (%) (Auto) 0.2 % Basophils (%) (Auto) 0.3 % Neutrophils # (Auto) 4.25 K/uL (1.4-6.5) Lymphocytes # (Auto) 1.05 K/uL (1.2-3.4) Monocytes # (Auto) 0.73 K/uL (0.11-0.59) Eosinophils # (Auto) 0.01 K/uL (0-0.5) Basophils # (Auto) 0.02 K/uL (0-0.2) RDW Standard Deviation 50.3 fL (36.4-46.3) RDW Coefficient of Variation 14.0 % (11.5-14.5) Immature Granulocyte % (Auto) 0.2 % Immature Granulocyte # (Auto) 0.01 K/uL (0.00-0.02) Anion Gap 6.0 mmol/L (3-11) Est Creatinine Clear Calc Drug Dose 55.5 ml/min Estimated GFR () 88.5 Estimated GFR (Non- 76.3 BUN/Creatinine Ratio 24.4 (10-20) Calcium Level 8.4 mg/dl (8.5-10.1) Assessment and Plan Patient is an 86 year old male from [facility] with a history of hypertension and hyperlipidemia that presents with shortness of breath and fevers up to 101.9 Shortness of breath with fever secondary to possible pneumonitis - negative CXR - Vancomycin, Zosyn, and Levaquin given in ED; - Switched to IV Rocephin and azithromycin, day 4 - Duonebs, Flutter valve, Supplemental oxygen as needed to maintain SpO2 > 92% - Influenza Negative, MRSA neg - CXR: Right lower lobe densities but no focal consolidations. Repeat CXR with no infiltrate. Possible pneumonitis. - INSIDE SALES ACCOUNT EXECUTIVE eval noted. Refrain from oral feeds when short of breath. Diet changed to mechanical soft. - Chest PT to help with secretions Acute Kidney Injury - resolved - Cr improved Hypokalemia -Improving today -40 mg powder K Hypertension - Continue home Lisinopril 10 and Metoprolol 50 Hyperlipidemia - Continue home Simvastatin 10 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 -Known blood on UA DVTP: SCDs Code: full Dispo: med/surg, Discharge back to [facility] based on therapy recommendations Reviewed: Pt Seen/Exam by Me History denies any complains Constitutional: denies: fever Respiratory: positive: cough (unable to expectorate though), negative: short of breath Cardiovascular: denies chest pain General Appearance: no apparent distress Respiratory: no respiratory distress, rhonchi (and upper respiratory coarse sounds) Cardiovascular: regular rate, rhythm Neurologic/Psychiatric: alert Skin Characteristics: warm/dry Assessment/Plan Resident Physician Supervision Note: I independently interviewed and examined the patient and verified the muro history and physical, reviewed labs and image studies, discussed the case with the resident Dr. Chin and agree with the findings and care plan.
[2017-08-20] MEDS: CEFTRIAXONE SOD INJ 1 GM in DEXTROSE 5% 50ML 50 ML IV SCH (15:41)
[2017-08-20] MEDS: AZITHROMYCIN 250 MG / D5W 250 ML IV SCH ×2 (16:29)
[2017-08-20] MEDS: POLYETHYLENE (MIRALAX) 17 GM PACK PO PRN (16:29)
[2017-08-20] MEDS: METOPROLOL SUCC 50MG EXT REL TAB PO SCH (19:15)
[2017-08-20] MEDS: ASPIRIN 81 MG ECTAB PO SCH (19:16)
[2017-08-21] VITALS (7 sets, daily range): BP systolic 97–117; BP diastolic 58–68; PULSE 82–98; TEMP 36.6; O2SAT 92–94
[2017-08-21 05:19] LABS: HEMATOCRIT 37.3 % (42-52); HEMOGLOBIN 12.2 g/dL (14.0-18.0); MEAN CELL VOLUME 99.2 fL (80-100); MEAN CORPUSCULAR HEMOGLOBIN 32.4 pg (25-34); MEAN CORPUSCULAR HGB CONC 32.7 g/dl (32-36); MEAN PLATELET VOLUME 9.7 fL (7.4-10.4); PLATELET COUNT 205 K/uL (130-400); RED CELL DISTRIBUTION WIDTH CV 13.9 % (11.5-14.5); RED CELL DISTRIBUTION WIDTH SD 50.2 fL (36.4-46.3); WHITE BLOOD COUNT 4.71 K/uL (4.8-10.8)
[2017-08-21 05:47] LABS: CALCIUM 8.2 mg/dl (8.5-10.1); CREATININE 0.83 mg/dl (0.60-1.40); POTASSIUM 3.8 mmol/L (3.5-5.1)
[2017-08-21] MEDS: ALBUT/IPRATROP 3MG/0.5MG NEB 3 ML VIAL INH SCH ×3 (07:12→15:14)
[2017-08-21] MEDS: CALCIUM 600MG + VIT D 400 IU TAB PO SCH (07:53)
[2017-08-21] MEDS: SIMVASTATIN 10 MG TAB PO SCH (07:53)
[2017-08-21] MEDS: LISINOPRIL 10 MG TAB PO SCH (07:54)
[2017-08-21] MEDS: POLYETHYLENE (MIRALAX) 17 GM PACK PO PRN (11:37)
[2017-08-21] MEDS ORDERED: CEFTRIAXONE SOD INJ 1 GM in DEXTROSE 5% ADD-VANTAGE 50ML 50 ML IV STA (13:23)
[2017-08-21] MEDS ORDERED: AZIT-57 PO (13:29)
[2017-08-21] MEDS ORDERED: AZITHROMYCIN 250 MG TAB PO ONE (13:30)
--- NOTE | 2017-08-21 13:41 | Discharge Instructions ---
Discharge Instructions Date of Service Aug 21, 2017. Admission Reason for Admission: Acute Respiratory Failure With Hypoxia, Hcap Discharge Discharge Diagnosis / Problem: pneumonitis Discharge Goals Goal(s): Decrease discomfort, Diagnostic testing, Therapeutic intervention Activity Recommendations Activity Limitations: resume your previous activity . Instructions / Follow-Up Instructions / Follow-Up Patient is an 86 year old male from [facility] with a history of hypertension and hyperlipidemia who presented with shortness of breath and fevers up to 101.9 and was found to have pneumonitis. Shortness of breath with fever secondary to possible pneumonitis - negative CXR - Influenza Negative, MRSA neg - CXR: Right lower lobe densities but no focal consolidations. Repeat CXR with no infiltrate. Possible pneumonitis. - RIG OPERATOR eval. Refrain from oral feeds when short of breath. Diet changed to slippery soft mechanical soft avoid "pasty", "doughy", or dry/thick foods, sit FULLY upright during and for 20-30 minutes following meals; keep the head of bed elevated at 30 degrees when sleeping, and do not recline lower than 30 degrees during the day. consider providing warm beverage prior to meals, and alternating liquids and foods (one sip of liquid for each bite of food) - Received IV Rocephin x 5 days and azithromycin x 4 days - Prescribed remaining 1 day dosage of Azithromycin 250mg PO once a day Hypertension - Continue home Lisinopril 10mg and Metoprolol 50mg daily Hyperlipidemia - Continue home Simvastatin 10mg daily 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 -Known blood on UA DVT Prophylaxis: SCDs Code: full Current Hospital Diet Patient's current hospital diet: AHA Diet (Heart Healthy) Discharge Diet Recommended Diet: AHA Diet (Heart Healthy) Pending Studies Studies pending at discharge: no Medical Emergencies . Who to Call and When: Medical Emergencies: If at any time you feel your situation is an emergency, please call 911 immediately. . Non-Emergent Contact Non-Emergency issues call your: Primary Care Provider . . "Provider Documentation" section prepared by Betty Mims. . VTE Core Measure Inpt VTE Proph given/why not?: SCD's Reviewed: Pt Seen/Exam by Me
--- NOTE | 2017-08-21 13:42 | Discharge Summary ---
Discharge Summary Date of Service Aug 21, 2017. Discharge Summary Admission Date: Aug 17, 2017 at 05:58 Discharge Date: Aug 21, 2017 Discharge Disposition: [facility] facility Principal Diagnosis: pneumonitis Immunizations: Have You Had Influenza Vaccine: Unknown History of Tetanus Vaccine?: Unknown History of Pneumococcal: Unknown History of Hepatitis B Vaccine: Unknown Procedures: Chest x-ray Consultations: None Medication Reconciliation New Medications: Azithromycin (Azithromycin) 250 Mg Tab 250 MG PO DAILY for 1 Day, TAB Continued Medications: Aspirin (Aspirin Dr) 81 Mg Tab 81 MG PO HS Calcium Carbonate-Vitamin D W/ (Caltrate 600 Plus) 1 Tab Tab 1 TAB PO DAILY, TAB Docusate Sodium (Docusate Sodium) 100 Mg Cap 100 MG PO DAILY PRN for Constipation Guaifenesin Ext Rel (Mucinex Ext Rel) 600 Mg Tab 600 MG PO Q12 PRN for CONGESTION, TAB Lisinopril (Zestril) 10 Mg Tab 10 MG PO DAILY, TAB Metoprolol Succinate (Toprol Xl) 50 Mg Tabcr 50 MG PO HS, TAB Simvastatin (Zocor) 10 Mg Tab 10 MG PO DAILY, TAB Discharge Exam Review of Systems: Constitutional: + weakness, No fever, No chills Respiratory: No shortness of breath Cardiovascular: No chest pain Abdomen: No pain, No nausea, No vomiting Genitourinary - Female: No dysuria Physical Exam: General Appearance: no apparent distress Eyes: normal inspection, sclerae normal Neck: supple Respiratory/Chest: normal breath sounds, + rhonchi (diffuse) Cardiovascular: regular rate, rhythm, no murmur Abdomen / GI: normal bowel sounds, non tender, soft Extremities: normal inspection, no pedal edema Neurologic/Psychiatric: alert, + pertinent finding (oriented to person and time (month and year) but not place in the setting of likely baseline dementia) Hospital Course Patient is an 86 year old male from [facility] with a history of hypertension and hyperlipidemia who presented with shortness of breath and fevers up to 101.9 and was found to have pneumonitis. Shortness of breath with fever secondary to possible pneumonitis - negative CXR - Influenza Negative, MRSA neg - CXR: Right lower lobe densities but no focal consolidations. Repeat CXR with no infiltrate. Possible pneumonitis. - MUD LOGGER eval. Refrain from oral feeds when short of breath. Diet changed to mechanical soft. - Received IV Rocephin x 5 days and azithromycin x 4 days - Prescribed remaining 1 day dosage of Azithromycin 250mg PO once a day Acute Kidney Injury - resolved - Cr improved to 0.83 this AM Hypokalemia - resolved - K 3.8 this AM Hypertension - Continue home Lisinopril 10mg and Metoprolol 50mg daily Hyperlipidemia - Continue home Simvastatin 10mg daily 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 -Known blood on UA DVT Prophylaxis: SCDs Code: full Total Time Spent: Less than 30 minutes This includes examination of the patient, discharge planning, medication reconciliation, and communication with other providers. Discharge Instructions Please refer to the electronic Patient Visit Report (Discharge Instructions) for additional information. Additional Copies To To Sharma M.D. Reviewed: Pt Seen/Exam by Me History Pt is feeling much improved. Denies SOB and is tolerating PO without issue. No chest pain. Feels that weakness is improving. Agree with HPI/ROS as noted by resident General Appearance: WD/WN, no apparent distress Respiratory: normal breath sounds, no respiratory distress Cardiovascular: normal peripheral pulses, regular rate, rhythm Gastrointestinal: non tender, soft Extremities: non-tender, no pedal edema Neurologic/Psychiatric: alert, normal mood/affect Skin Characteristics: normal color, warm/dry Assessment/Plan Agree with plan as outlined above RLL PNA, appears improving, will d/c to finish course of azithromycin as outpt Blood cx neg Urine cx and flu swabs neg Speech eval: mechanical soft diet recs Has had sundowning issues while hospitalized Return to [facility]
[2017-08-21] MEDS ORDERED: AZITHROMYCIN 250 MG TAB PO SCH (17:00)
== END 2017-08-21 16:45 | DRG 194 ==
LOC: EDSEX 03:33 → EDBD 03:33 → C.EDB 03:34 → C.4E 05:58 → ENRESERV 06:23
PROVIDERS: ADMIT Student in an Organized Health Care Education/Training Program; ATTEND Family Medicine
DX: J18.9 Pneumonia, unspecified organism (principal); N17.9 Acute kidney failure, unspecified; I10 Essential (primary) hypertension; N31.9 Neuromuscular dysfunction of bladder, unspecified; E87.6 Hypokalemia; E78.5 Hyperlipidemia, unspecified; I25.2 Old myocardial infarction; Z87.891 Personal history of nicotine dependence; Z79.82 Long term (current) use of aspirin; Z79.899 Other long term (current) drug therapy

== ENCOUNTER → 2017-11-23 | Outpatient (CLI) | payer BC ==
[~2017-11-23] MED LIST changes: +AZIT-57 PO; -CALCTAB5 PO; +CALCTAB7 PO; -CRAN1CAP15 PO; +DOCU100C31 PO; +GUAI1TAB55 PO; -OMEG10007 PO; -Vitamin E PO; -vitamin D PO
[2017-11-23 15:59] LABS: BASO % 0.7 %; BASO ABS # 0.05 K/uL (0-0.2); EOS % 3.6 %; EOS ABS # 0.25 K/uL (0-0.5); HEMATOCRIT 42.4 % (42-52); HEMOGLOBIN 13.7 g/dL (14.0-18.0); IG# 0.02 K/uL (0.00-0.02); LYMPH % 30.1 %; LYMPH ABS # 2.11 K/uL (1.2-3.4); MEAN CELL VOLUME 98.4 fL (80-100); MEAN CORPUSCULAR HEMOGLOBIN 31.8 pg (25-34); MEAN CORPUSCULAR HGB CONC 32.3 g/dl (32-36); MONO % 10.6 %; MONO ABS # 0.74 K/uL (0.11-0.59); NEUT % 54.7 %; NEUT ABS # 3.84 K/uL (1.4-6.5); PLATELET COUNT 271 K/uL (130-400); RED CELL DISTRIBUTION WIDTH CV 13.2 % (11.5-14.5); RED CELL DISTRIBUTION WIDTH SD 47.6 fL (36.4-46.3); WHITE BLOOD COUNT 7.01 K/uL (4.8-10.8)
[2017-11-23 16:09] LABS: ALBUMIN 4.1 gm/dl (3.4-5.0); ALT/SGPT 23 U/L (12-78); AST/SGOT 14 U/L (15-37); BLOOD UREA NITROGEN 19 mg/dl (7-18); CALCIUM 9.6 mg/dl (8.5-10.1); CARBON DIOXIDE 29 mmol/L (21-32); CHOLESTEROL 115 mg/dl (0-200); CREATININE 1.27 mg/dl (0.60-1.40); GLUCOSE 89 mg/dl (70-99); POTASSIUM 4.1 mmol/L (3.5-5.1); SODIUM 137 mmol/L (136-145)
[2017-11-23 16:12] LABS: ALKALINE PHOSPHATASE 78 U/L (45-117); LDL CHOLESTEROL CALCULATED 40 mg/dl; TOTAL PROTEIN 7.4 gm/dl (6.4-8.2)
== END | disposition home or self-care (01) ==
LOC: C.LAB1850 15:05
PROVIDERS: ATTEND Internal Medicine Pulmonary Disease
DX: E78.5 Hyperlipidemia, unspecified (principal); I10 Essential (primary) hypertension; N31.9 Neuromuscular dysfunction of bladder, unspecified; N40.0 Benign prostatic hyperplasia without lower urinary tract symptoms